=== PATIENT | male | born 1985 | race Caucasian/White ===

== ENCOUNTER → 2023-11-17 09:52 | Outpatient (BNVA) | payer MEDICAID, SELFPAY | PROVIDERS: Family Provider Specialist; PCP Family Medicine; Referring Provider Family Medicine; Visit Provider Specialist | DX: G40.309 Generalized idiopathic epilepsy and epileptic syndromes, not intractable, without status epilepticus (principal); Q07.9 Congenital malformation of nervous system, unspecified; G40.909 Epilepsy, unspecified, not intractable, without status epilepticus | CPT/HCPCS: 36415; 80053; 80175; 82607; 82746; 85007; 85027; 85651; 99205 ==

== ENCOUNTER → 2024-05-01 10:08 | Outpatient (BNVA) | payer MEDICAID, SELFPAY | PROVIDERS: Family Provider Specialist; PCP Family Medicine; Referring Provider Specialist; Visit Provider Specialist | DX: G40.309 Generalized idiopathic epilepsy and epileptic syndromes, not intractable, without status epilepticus (principal) | CPT/HCPCS: 95819 ==

== ENCOUNTER → 2024-06-27 10:40 | Outpatient (BNVA) | payer MEDICAID, SELFPAY | PROVIDERS: Family Provider Specialist; PCP Family Medicine; Visit Provider Specialist | DX: G40.309 Generalized idiopathic epilepsy and epileptic syndromes, not intractable, without status epilepticus (principal); Q07.9 Congenital malformation of nervous system, unspecified | CPT/HCPCS: 99213 ==